=== PATIENT | male | born 1980 | race Two or more races ===

== ENCOUNTER 2023-11-21 08:07 | Emergency (ER) | payer BC ==
[2023-11-21 08:13] VITALS: BP 143/88; PULSE 78; RESP 18; TEMP 98.6; BMI 31.4
[2023-11-21] MEDS ORDERED: LIDOCAINE 4% PATCH TP ONE (09:23)
[2023-11-21] MEDS ORDERED: KETOROLAC TROMETHAMINE 15 MG/ML VIAL ONE (09:23)
[2023-11-21] MEDS ORDERED: ACETAMINOPHEN 325 MG TABLET (FP) ONE (09:23)
[2023-11-21] MEDS ORDERED: CYCLOBENZAPRINE HCL 10 MG TABLET (FP) ONE (09:23)
[2023-11-21] MEDS: LIDOCAINE 4% PATCH TP ONE (09:29)
[2023-11-21] MEDS: CYCLOBENZAPRINE HCL 5 MG TABLET PO ONE (09:30)
[2023-11-21] MEDS: KETOROLAC TROMETHAMINE 15 MG/ML VIAL IM ONE (09:30)
[2023-11-21] MEDS: ACETAMINOPHEN 500 MG TABLET (FP) PO ONE (09:30)
[2023-11-21] MEDS ORDERED: LIDOCAINE PATCH REMOVAL MC ONE (22:00)
== END 2023-11-21 10:00 | disposition home or self-care (01) ==
LOC: JER 08:07
PROC: 3E0233Z Introduction of Anti-inflammatory into Muscle, Percutaneous Approach (ICD-10-PCS; principal; 2023-11-21)
DX: M54.50 Low back pain, unspecified (principal); S39.012A Strain of muscle, fascia and tendon of lower back, initial encounter; X50.0XXA Overexertion from strenuous movement or load, initial encounter
CPT/HCPCS: 99284-25